=== PATIENT | male | born 1975 | race Caucasian/White ===

== ENCOUNTER → 2017-02-25 | Outpatient (CLI) | payer OTHER ==
[~2017-02-25] MED LIST: SENNA8.6 MG PO
[2017-02-25 10:52] VITALS: BP 108/73
== END ==
LOC: OPONC 09:15
DX: K56.60 Unspecified intestinal obstruction (principal)
CPT/HCPCS: 95000; 95001; 95113

== ENCOUNTER → 2017-08-08 | Outpatient (CLI) | payer OTHER | LOC: ULTRA 09:34 | DX: M79.604 Pain in right leg (principal); M79.89 Other specified soft tissue disorders ==

== ENCOUNTER → 2020-06-24 | Outpatient (CLI) | payer OTHER | LOC: CAT 06-16 09:37 | PROVIDERS: ATTEND Family Medicine | DX: Z13.6 Encounter for screening for cardiovascular disorders (principal); E78.00 Pure hypercholesterolemia, unspecified; I25.10 Atherosclerotic heart disease of native coronary artery without angina pectoris ==